=== PATIENT | male | born 1960 | race American Indian/Alaskan Native ===

== ENCOUNTER 2017-07-18 14:28 | Inpatient (IN) | payer MEDICAID, OTHER ==
[2017-07-18 15:34] LABS: BASO % 0.6 % (0.0-2.0); EOS # 0.1 K/uL (0.0-0.7); EOS % 1.9 % (0.0-4.0); HEMATOCRIT 33.9 % (35.0-51.0); LYMPH # 1.6 K/uL (1.0-4.3); LYMPH % 24.4 % (20.0-40.0); MEAN CELL VOLUME 91.3 fL (80.0-94.0); MEAN CORPUSCULAR HEMOGLOBIN 30.6 pg (27.0-31.0); MEAN CORPUSCULAR HGB CONC 33.5 g/dL (33.0-37.0); MEAN PLATELET VOLUME 8.7 fL (7.2-11.7); MONO # 0.5 K/uL (0.0-0.8); MONO % 7.2 % (0.0-10.0); RED CELL DISTRIBUTION WIDTH 13.4 % (11.5-14.5); WHITE BLOOD COUNT 6.6 K/uL (4.8-10.8)
[2017-07-18 15:42] LABS: INR 1.1
[2017-07-18 15:44] LABS: CHLORIDE 105 mmol/L (98-107); SODIUM 142 mmol/L (132-148)
[2017-07-18 15:45] LABS: POTASSIUM 4.1 mmol/L (3.6-5.2)
[2017-07-18 15:47] LABS: ALB/GLOB RATIO 1.2 (1.0-2.1); CARBON DIOXIDE 26 mmol/L (22-30); GFR AFRICAN-AMERICAN > 60; TOTAL PROTEIN 7.2 g/dL (6.3-8.3)
[2017-07-18 15:48] LABS: ALKALINE PHOSPHATASE 58 U/L (38-126); ALT/SGPT 29 U/L (21-72); AST/SGOT 26 U/L (17-59); BILIRUBIN,TOTAL 0.5 mg/dL (0.2-1.3); BLOOD UREA NITROGEN 12 mg/dL (9-20); CALCIUM 9.1 mg/dl (8.6-10.4); GLUCOSE,RANDOM 72 mg/dL (75-110)
[2017-07-18] MEDS ORDERED: Heparin25000 units/250ml 1/2NS 25,000 UNITS/250 ML BAG IV ONE (16:47)
--- NOTE | 2017-07-18 17:05 | C.PDOC ---
Time Seen by Provider: 07/18/17 14:48 Chief Complaint (Nursing): Lower Extremity Problem/Injury History Per: Patient Onset/Duration Of Symptoms: Days (about 1-2 weeks) Current Symptoms Are (Timing): Worse Severity: Moderate Associated Symptoms: Leg/Calf Pain (right), Ankle/Leg Swelling (right). denies : Chest Pain Reports Recently: Treated By A Physician Additional History Per: Prior Records Past Medical History Reviewed: Historical Data, Nursing Documentation, Vital Signs Vital Signs: Last Vital Signs Temp 98.4 F 07/18/17 16:26 Pulse 61 07/18/17 16:26 Resp 18 07/18/17 16:26 BP 153/84 H 07/18/17 16:26 Pulse Ox 96 07/18/17 16:26 - Medical History PMH: Deep Vein Thrombosis (many years ago), HTN, Hypercholesterolemia Family History: States: Unknown Family Hx - Social History Hx Alcohol Use: Yes Hx Substance Use: Yes - Immunization History Hx Tetanus Toxoid Vaccination: (unk) Hx Influenza Vaccination: No Hx Pneumococcal Vaccination: (unk) Review Of Systems Except As Marked, All Systems Reviewed And Found Negative. Constitutional: Negative for: Fever, Weakness Cardiovascular: Negative for: Chest Pain, Palpitations Respiratory: Negative for: Shortness of Breath Gastrointestinal: Negative for: Vomiting, Abdominal Pain Musculoskeletal: Positive for: Leg Pain (right). Negative for: Neck Pain, Back Pain Neurological: Negative for: Weakness, Numbness Physical Exam - Physical Exam Appears: Non-toxic, No Acute Distress Skin: Warm, Dry Head: Atraumatic, Normacephalic Eye(s): bilateral: Normal Inspection, PERRL, EOMI Neck: Normal ROM, Supple Cardiovascular: Rhythm Regular Respiratory: Normal Breath Sounds, No Accessory Muscle Use Gastrointestinal/Abdominal: Soft, No Tenderness Back: No CVA Tenderness Extremity: Normal ROM, Calf Tenderness (right), Capillary Refill (wnl), Swelling (RLE) Pulses: Right Dorsalis Pedis: Normal Neurological/Psych: Oriented x3, Normal Motor, Normal Sensation ED Course And Treatment - Laboratory Results Result Diagrams: 07/18/17 15:30 07/18/17 15:30 O2 Sat by Pulse Oximetry: 96 Pulse Ox Interpretation: Normal - CT Scan/US RLE Duplex Other Rad Studies (CT/US): Read By Radiologist, Radiology Report Reviewed CT/US Interpretation: Acute DVT in entire RLE. Progress - Interventions Interventions:: Observation - Medications Administered Intravenous: Other (Heparin) - Data Reviewed Data Reviewed: Lab, Diagnostic imaging, Old records - Continuity of Care Discussed patient case with:: Patient, ED Nurse, Covering for PMD - Patient Plan Patient Plan: Admission Disposition Discussed With : [place] Comment: He accepted pt on his service. Doctor Will See Patient In The: Hospital Counseled Patient/Family Regarding: Studies Performed, Diagnosis - Disposition Disposition: HOSPITALIZED Disposition Time: 17:05 Condition: GUARDED - Clinical Impression Clinical Impression: Acute deep vein thrombosis of right lower extremity
--- NOTE | 2017-07-18 17:54 | CP.PCM.HP ---
Past Patient History - Past Social History Smoking Status: Light Smoker < 10 Cigarettes Daily - CARDIAC Hx Hypercholesterolemia: Yes Hx Hypertension: Yes - PSYCHIATRIC Hx Substance Use: Yes - SURGICAL HISTORY Hx Surgeries: No - ANESTHESIA Hx Anesthesia: No Meds Allergies/Adverse Reactions: Allergies Allergy/AdvReac Type Severity Reaction Status Date / Time No Known Allergies Allergy Unverified 07/18/17 14:40 Results - Vital Signs Recent Vital Signs: Last Vital Signs Temp 98.4 F 07/18/17 16:26 Pulse 61 07/18/17 16:26 Resp 18 07/18/17 16:26 BP 153/84 H 07/18/17 16:26 Pulse Ox 96 07/18/17 17:09 - Labs Result Diagrams: 07/18/17 15:30 07/18/17 15:30 Labs: Laboratory Results - last 24 hr 07/18/17 07/18/17 07/18/17 15:30 15:30 15:30 WBC 6.6 RBC 3.71 L Hgb 11.3 L Hct 33.9 L MCV 91.3 MCH 30.6 MCHC 33.5 RDW 13.4 Plt Count 174 MPV 8.7 Neut % (Auto) 65.9 Lymph % (Auto) 24.4 [place] % (Auto) 7.2 Eos % (Auto) 1.9 Baso % (Auto) 0.6 Neut # 4.3 Lymph # 1.6 [place] # 0.5 Eos # 0.1 Baso # 0.0 PT 12.1 INR 1.1 APTT 29 Sodium 142 Potassium 4.1 Chloride 105 Carbon Dioxide 26 Anion Gap 15 BUN 12 Creatinine 0.8 Est GFR ( Amer) > 60 Est GFR (Non-Af Amer) > 60 Random Glucose 72 L Calcium 9.1 Total Bilirubin 0.5 AST 26 ALT 29 Alkaline Phosphatase 58 Total Protein 7.2 Albumin 3.9 Globulin 3.2 Albumin/Globulin Ratio 1.2
[2017-07-18] MEDS ORDERED: Pneumococcal 23-Valent Vaccine IM ONE (21:02)
[2017-07-19] MEDS ORDERED: Heparin25000 units/250ml 1/2NS 25,000 UNITS/250 ML BAG IV ONE ×3 (02:45→19:30)
[2017-07-19] MEDS: Methadone 40 mg Tab PO SCH (12:44)
--- NOTE | 2017-07-19 17:20 | CP.PCM.PN ---
Subjective - Date & Time of Evaluation Date of Evaluation: 07/19/17 Time of Evaluation: 17:20 Objective - Vital Signs/Intake and Output Vital Signs (last 24 hours): Temp Pulse Resp BP Pulse Ox 98.1 F 66 20 121/71 97 07/19/17 16:00 07/19/17 16:52 07/19/17 16:00 07/19/17 16:00 07/19/17 16:00 Intake and Output: 07/19/17 07/19/17 06:59 18:59 Intake Total 680 577.6 Output Total 1000 850 Balance -320 -272.4 - Medications Medications: Current Medications Amlodipine Besylate (Norvasc) 10 mg PO DAILY [facility] Last Admin: 07/19/17 09:38 Dose: 10 mg Heparin Sodium/Sodium Chloride (Heparin 67889 Units/250ml 1/2 Normal Saline) 25 ,000 units in 250 mls @ 9.743 mls/hr IV .Q24H ONE; 12 UNITS/KG/HR PRN Reason: Protocol Stop: 07/20/17 05:14 Last Admin: 07/19/17 04:55 Dose: 12 units/kg/hr, 9.743 mls/hr Methadone HCl (Methadone) 5 mg PO DAILY [facility] Last Admin: 07/19/17 12:44 Dose: 5 mg Methadone HCl (Methadose) 160 mg PO DAILY [facility] Last Admin: 07/19/17 12:44 Dose: 160 mg - Labs Labs: 07/18/17 15:30 07/18/17 15:30 PT 12.1 SECONDS (9.7-12.2) 07/18/17 15:30 INR 1.1 07/18/17 15:30 APTT 83 SECONDS (21-34) H D 07/19/17 10:59
--- NOTE | 2017-07-19 22:21 | CP.PCM.CON ---
History of Present Illness - History of Present Illness History of Present Illness: Patient seen and evaluated Admitted for right leg DVT Now on anticoagulation Chief Complaint (Nursing): Lower Extremity Problem/Injury History Per: Patient Onset/Duration Of Symptoms: Days (about 1-2 weeks) Current Symptoms Are (Timing): Worse Severity: Moderate Associated Symptoms: Leg/Calf Pain (right), Ankle/Leg Swelling (right). denies : Chest Pain Reports Recently: Treated By A Physician Additional History Per: Prior Records - Medical History PMH: Deep Vein Thrombosis (many years ago), HTN, Hypercholesterolemia Family History: States: Unknown Family Hx - Social History Hx Alcohol Use: Yes Hx Substance Use: Yes - Immunization History Hx Tetanus Toxoid Vaccination: (unk) Hx Influenza Vaccination: No Hx Pneumococcal Vaccination: (unk) Review Of Systems Except As Marked, All Systems Reviewed And Found Negative. Constitutional: Negative for: Fever, Weakness Cardiovascular: Negative for: Chest Pain, Palpitations Respiratory: Negative for: Shortness of Breath Gastrointestinal: Negative for: Vomiting, Abdominal Pain Musculoskeletal: Positive for: Leg Pain (right). Negative for: Neck Pain, Back Pain Neurological: Negative for: Weakness, Numbness Physical Exam - Physical Exam Appears: Non-toxic, No Acute Distress Skin: Warm, Dry Head: Atraumatic, Normacephalic Eye(s): bilateral: Normal Inspection, PERRL, EOMI Neck: Normal ROM, Supple Cardiovascular: Rhythm Regular Respiratory: Normal Breath Sounds, No Accessory Muscle Use Gastrointestinal/Abdominal: Soft, No Tenderness Back: No CVA Tenderness Extremity: Normal ROM, Calf Tenderness (right), Capillary Refill (wnl), Swelling (RLE) Pulses: Right Dorsalis Pedis: Normal Neurological/Psych: Oriented x3, Normal Motor, Normal Sensation Past Patient History - Past Medical History & Family History Past Medical History?: Yes - Past Social History Smoking Status: Light Smoker < 10 Cigarettes Daily - CARDIAC Hx Hypercholesterolemia: Yes Hx Hypertension: Yes - MUSCULOSKELETAL/RHEUMATOLOGICAL Hx Falls: No - PSYCHIATRIC Hx Substance Use: Yes - SURGICAL HISTORY Hx Surgeries: No - ANESTHESIA Hx Anesthesia: No Meds Allergies/Adverse Reactions: Allergies Allergy/AdvReac Type Severity Reaction Status Date / Time No Known Allergies Allergy Unverified 07/18/17 14:40 - Medications Medications: Current Medications Amlodipine Besylate (Norvasc) 10 mg PO DAILY [facility] Last Admin: 07/19/17 09:38 Dose: 10 mg Heparin Sodium/Sodium Chloride (Heparin 85652 Units/250ml 1/2 Normal Saline) 25 ,000 units in 250 mls @ 9.743 mls/hr IV .Q24H ONE; 12 UNITS/KG/HR PRN Reason: Protocol Stop: 07/20/17 19:29 Last Admin: 07/19/17 19:27 Dose: 12 units/kg/hr, 9.743 mls/hr Methadone HCl (Methadone) 5 mg PO DAILY [facility] Last Admin: 07/19/17 12:44 Dose: 5 mg Methadone HCl (Methadose) 160 mg PO DAILY [facility] Last Admin: 07/19/17 12:44 Dose: 160 mg Results - Vital Signs Recent Vital Signs: Last Vital Signs Temp 98.1 F 07/19/17 16:00 Pulse 66 07/19/17 16:52 Resp 20 07/19/17 16:00 BP 121/71 07/19/17 16:00 Pulse Ox 97 07/19/17 16:00 - Labs Result Diagrams: 07/21/17 08:01 07/21/17 08:01 Labs: Laboratory Results - last 24 hr 07/19/17 07/19/17 07/19/17 00:51 03:06 05:12 APTT 211 H* D 118 H* D 65 H D TSH 3rd Generation 07/19/17 07/19/17 07:08 10:59 APTT 83 H D TSH 3rd Generation 3.61 Assessment & Plan - Assessment and Plan (Free Text) Assessment: (1) Acute deep vein thrombosis of right lower extremity Assessment and Plan: Anticoagulation as per PMD and Hematology (2) Anemia Assessment and Plan: Mgt as per PMD (3) Coagulopathy Assessment and Plan: secondary to anticoagulation (3) RA Mass Assessment and Plan: Clot Vs. Endocarditis Vs. RA myxoma RADHA tomorrow
--- NOTE | 2017-07-20 07:09 | CARD ---
APPROVED REPORT EXAM: Two-dimensional and M-mode echocardiogram with Doppler and color Doppler. Other Information Quality : GoodRhythm : NSR INDICATION Dyspnea RISK FACTORS Hypertension Hyperlipidemia 2D DIMENSIONS IVSd1.2 (0.7-1.1cm)LVDd5.2 (3.9-5.9cm) PWd0.9 (0.7-1.1cm)LVDs3.0 (2.5-4.0cm) FS (%) 41.3 %LVEF (%)71.9 (>50%) M-Mode DIMENSIONS RVDd2.08 (2.1-3.2cm)Left Atrium (MM)3.32 (2.5-4.0cm) IVSd0.80 (0.7-1.1cm)Aortic Root3.55 (2.2-3.7cm) LVDd5.45 (4.0-5.6cm)Aortic Cusp Exc.2.23 (1.5-2.0cm) PWd0.87 (0.7-1.1cm)FS (%) 39 % LVDs3.33 (2.0-3.8cm)LVEF (%)69 (>50%) Mitral Valve MV E Fjcxpdxy80.3cm/sMV A Myibcszl55.5cm/sE/A ratio0.7 TDI E/Lateral E'0.0E/Medial E'0.0 Tricuspid Valve TR Peak Lbiojfls340nv/sTR Peak Gr.60cgSnEOUG90udGj LEFT VENTRICLE The left ventricle is normal size. There is normal left ventricular wall thickness. Left ventricle systolic function is normal. The Ejection Fraction is >70%. There is normal LV segmental wall motion. Tissue Doppler imaging reveals abnormal left ventricular diastolic dysfunction. RIGHT VENTRICLE The right ventricle is normal size. There is normal right ventricular wall thickness. The right ventricular systolic function is normal. ATRIA The left atrium size is normal. The right atrium size is normal. The interatrial septum is intact with no evidence for an atrial septal defect. AORTIC VALVE The aortic valve is normal in structure. No aortic regurgitation is present. There is no aortic valvular stenosis. MITRAL VALVE The mitral valve is normal in structure. A borderline mitral valve prolapse is present. There is no mitral valve stenosis. Mitral regurgitation is mild. TRICUSPID VALVE There is mild tricuspid regurgitation. Right ventricular systolic pressure is estimated at 40-50 mmHg. There is mild-moderate pulmonary hypertension. There is a mobile large mass on the tricuspid valve consistent of vegetation(cannot rule out myxoma). Please correlate clinically.Suggest RADHA. PULMONIC VALVE The pulmonic valve is not well visualized. There is mild pulmonic valvular regurgitation. GREAT VESSELS The aortic root is normal in size. PERICARDIAL EFFUSION There is no significant pericardial effusion. <Conclusion> Left ventricle systolic function is normal. The Ejection Fraction is >70%. Diastolic dysfunction. No aortic regurgitation is present. Mitral regurgitation is mild. There is mild tricuspid regurgitation. There is mild-moderate pulmonary hypertension. There is a mobile large mass on the tricuspid valve consistent of vegetation(cannot rule out myxoma). Please correlate clinically.Suggest RADHA. There is mild pulmonic valvular regurgitation.
[2017-07-20 07:20] LABS: HEMATOCRIT 35.4 % (35.0-51.0); MEAN CORPUSCULAR HEMOGLOBIN 31.5 pg (27.0-31.0); MEAN CORPUSCULAR HGB CONC 33.8 g/dL (33.0-37.0); MEAN PLATELET VOLUME 9.9 fL (7.2-11.7); RED CELL DISTRIBUTION WIDTH 13.4 % (11.5-14.5); WHITE BLOOD COUNT 6.1 K/uL (4.8-10.8)
[2017-07-20] MEDS: Methadone 40 mg Tab PO SCH (10:08)
--- NOTE | 2017-07-20 11:48 | CP.PCM.CON ---
History of Present Illness - History of Present Illness History of Present Illness: 57 year old male with a history of recurrent RLE DVT admitted with RLE swelling concerning for DVT. The patient went to his PMD for RLE swelling and pain. He reports this is similar to prior DVTs and had an US with his PMD which the pt reports showed a DVT. His DVT in the RLE was diagnosed in 2013 and treated with 6 months of coumadin, He had a 2nd recurrent DVT in 2014 and again received 6 months of coumadin. He does report have several family members with blood clots. He denies chest pain and shortness of breath. Past medical history: Recurrent DVT Past surgical history: None Family history: Several family members with blood clots Social history: Smokes 5-6 cigs daily, denies alcohol, and illicit drug use. Allergies: NKA Review of systems: All remaining review of systems including HEENT, cardiovascular, respiratory, gastrointestinal, genitourinary, musculoskeletal, dermatologic, neurologic, and psychiatric are negative unless mentioned in the HPI. Past Patient History - Past Medical History & Family History Past Medical History?: Yes - Past Social History Smoking Status: Light Smoker < 10 Cigarettes Daily - CARDIAC Hx Hypercholesterolemia: Yes Hx Hypertension: Yes - MUSCULOSKELETAL/RHEUMATOLOGICAL Hx Falls: No - PSYCHIATRIC Hx Substance Use: Yes - SURGICAL HISTORY Hx Surgeries: No - ANESTHESIA Hx Anesthesia: No Meds Allergies/Adverse Reactions: Allergies Allergy/AdvReac Type Severity Reaction Status Date / Time No Known Allergies Allergy Unverified 07/18/17 14:40 - Medications Medications: Current Medications Amlodipine Besylate (Norvasc) 10 mg PO DAILY [facility] Last Admin: 07/20/17 10:08 Dose: 10 mg Heparin Sodium/Sodium Chloride (Heparin 74146 Units/250ml 1/2 Normal Saline) 25 ,000 units in 250 mls @ 9.743 mls/hr IV .Q24H ONE; 12 UNITS/KG/HR PRN Reason: Protocol Stop: 07/20/17 19:29 Last Admin: 07/19/17 19:27 Dose: 12 units/kg/hr, 9.743 mls/hr Methadone HCl (Methadone) 5 mg PO DAILY [facility] Last Admin: 07/20/17 10:08 Dose: 5 mg Methadone HCl (Methadose) 160 mg PO DAILY [facility] Last Admin: 07/20/17 10:08 Dose: 160 mg Physical Exam - Head Exam Head Exam: ATRAUMATIC - Eye Exam Eye Exam: Normal appearance - ENT Exam ENT Exam: Mucous Membranes Dry - Respiratory Exam Respiratory Exam: NORMAL BREATHING PATTERN - Cardiovascular Exam Cardiovascular Exam: +S1, +S2 - GI/Abdominal Exam GI & Abdominal Exam: Normal Bowel Sounds - Extremities Exam Extremities exam: Positive for: normal inspection - Neurological Exam Neurological exam: Oriented x3 - Psychiatric Exam Psychiatric exam: Normal Affect, Normal Mood - Skin Skin Exam: Warm Results - Vital Signs Recent Vital Signs: Last Vital Signs Temp 97.8 F 07/20/17 08:18 Pulse 56 L 07/20/17 08:18 Resp 20 07/20/17 08:18 BP 135/84 07/20/17 08:18 Pulse Ox 95 07/20/17 08:18 - Labs Result Diagrams: 07/20/17 07:10 07/18/17 15:30 Labs: Laboratory Results - last 24 hr 07/20/17 07/20/17 07:10 07:10 WBC 6.1 RBC 3.81 L Hgb 12.0 Hct 35.4 MCV 93.0 MCH 31.5 H MCHC 33.8 RDW 13.4 Plt Count 182 MPV 9.9 APTT 73 H D Assessment & Plan (1) Acute deep vein thrombosis of right lower extremity Assessment and Plan: agree with heparin drip pt agreeable to outpatient Pradaxa 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 Status: Acute
--- NOTE | 2017-07-20 15:13 | CP.PCM.PN ---
Subjective - Date & Time of Evaluation Date of Evaluation: 07/20/17 Time of Evaluation: 13:00 - Subjective Subjective: Leg swelling improved Objective - Vital Signs/Intake and Output Vital Signs (last 24 hours): Temp Pulse Resp BP Pulse Ox 97.4 F L 61 20 131/81 96 07/20/17 15:09 07/20/17 15:09 07/20/17 15:09 07/20/17 15:09 07/20/17 15:09 - Medications Medications: Current Medications Amlodipine Besylate (Norvasc) 10 mg PO DAILY [facility] Last Admin: 07/20/17 10:08 Dose: 10 mg Heparin Sodium/Sodium Chloride (Heparin 97414 Units/250ml 1/2 Normal Saline) 25 ,000 units in 250 mls @ 9.743 mls/hr IV .Q24H ONE; 12 UNITS/KG/HR PRN Reason: Protocol Stop: 07/20/17 19:29 Last Admin: 07/19/17 19:27 Dose: 12 units/kg/hr, 9.743 mls/hr Methadone HCl (Methadone) 5 mg PO DAILY [facility] Last Admin: 07/20/17 10:08 Dose: 5 mg Methadone HCl (Methadose) 160 mg PO DAILY [facility] Last Admin: 07/20/17 10:08 Dose: 160 mg - Labs Labs: 07/20/17 07:10 07/18/17 15:30 PT 12.1 SECONDS (9.7-12.2) 07/18/17 15:30 INR 1.1 07/18/17 15:30 APTT 73 SECONDS (21-34) H D 07/20/17 07:10 - Head Exam Head Exam: ATRAUMATIC - Eye Exam Eye Exam: Normal appearance - ENT Exam ENT Exam: Mucous Membranes Dry - Respiratory Exam Respiratory Exam: NORMAL BREATHING PATTERN - Cardiovascular Exam Cardiovascular Exam: +S1, +S2 - GI/Abdominal Exam GI & Abdominal Exam: Normal Bowel Sounds - Extremities Exam Extremities Exam: Pedal Edema Assessment and Plan (1) Acute deep vein thrombosis of right lower extremity Assessment & Plan: on heparin drip pt agreeable to outpatient Pradaxa 150mg BID lifelong anticoagulation hypercoag w/u sent Status: Acute (2) Anemia Assessment & Plan: w/u sent Status: Acute (3) Coagulopathy Assessment & Plan: anticoagulation Status: Acute
[2017-07-20 15:23] LABS: FOLATE 16.5 ng/mL
--- NOTE | 2017-07-20 19:02 | CP.PCM.PN ---
Subjective - Date & Time of Evaluation Date of Evaluation: 07/20/17 Time of Evaluation: 19:01 Objective - Vital Signs/Intake and Output Vital Signs (last 24 hours): Temp Pulse Resp BP Pulse Ox 97.4 F L 61 20 131/81 96 07/20/17 15:07/20/17 15:07/20/17 15:07/20/17 15:07/20/17 15:09 - Medications Medications: Current Medications Amlodipine Besylate (Norvasc) 10 mg PO DAILY [facility] Last Admin: 07/20/17 10:08 Dose: 10 mg Heparin Sodium/Sodium Chloride (Heparin 05807 Units/250ml 1/2 Normal Saline) 25 ,000 units in 250 mls @ 9.743 mls/hr IV .Q24H ONE; 12 UNITS/KG/HR PRN Reason: Protocol Stop: 07/20/17 19:29 Last Admin: 07/19/17 19:27 Dose: 12 units/kg/hr, 9.743 mls/hr Methadone HCl (Methadone) 5 mg PO DAILY [facility] Last Admin: 07/20/17 10:08 Dose: 5 mg Methadone HCl (Methadose) 160 mg PO DAILY [facility] Last Admin: 07/20/17 10:08 Dose: 160 mg - Labs Labs: 07/20/17 07:10 07/18/17 15:30 PT 12.1 SECONDS (9.7-12.2) 07/18/17 15:30 INR 1.1 07/18/17 15:30 APTT 73 SECONDS (21-34) H D 07/20/17 07:10
[2017-07-20] MEDS ORDERED: Heparin25000 units/250ml 1/2NS 25,000 UNITS/250 ML BAG IV PRN (20:34)
[2017-07-21 08:13] LABS: INR 1.1
[2017-07-21 08:17] LABS: HEMATOCRIT 38.4 % (35.0-51.0); MEAN CELL VOLUME 91.1 fL (80.0-94.0); MEAN CORPUSCULAR HEMOGLOBIN 29.9 pg (27.0-31.0); MEAN CORPUSCULAR HGB CONC 32.8 g/dL (33.0-37.0); MEAN PLATELET VOLUME 9.5 fL (7.2-11.7); RED CELL DISTRIBUTION WIDTH 13.7 % (11.5-14.5); WHITE BLOOD COUNT 6.6 K/uL (4.8-10.8)
[2017-07-21] MEDS ORDERED: Lidocaine 4% (Laryng-O-Jet) Kit MM ONE ×2 (08:20→08:31)
[2017-07-21 08:26] LABS: CHLORIDE 104 mmol/L (98-107); POTASSIUM 4.8 mmol/L (3.6-5.2); SODIUM 140 mmol/L (132-148)
[2017-07-21 08:29] LABS: BLOOD UREA NITROGEN 16 mg/dL (9-20); CARBON DIOXIDE 27 mmol/L (22-30); GFR AFRICAN-AMERICAN > 60
[2017-07-21 08:30] LABS: CALCIUM 9.3 mg/dl (8.6-10.4); GLUCOSE,RANDOM 82 mg/dL (75-110)
[2017-07-21] MEDS ORDERED: Midazolam 2 MG/2 ML VIAL ONE ×2 (08:30→08:31)
[2017-07-21] MEDS ORDERED: Propofol 10 mg/ml Inj (20 ML) ONE ×2 (08:35)
[2017-07-21] MEDS ORDERED: Heparin25000 units/250ml 1/2NS 25,000 UNITS/250 ML BAG IV PRN ×2 (11:15→22:30)
[2017-07-21] MEDS ORDERED: SODIUM CHLORIDE 0.9% IV ONE (12:00)
[2017-07-21] MEDS ORDERED: HEPARIN IV ONE (12:00)
[2017-07-21] MEDS: Methadone 40 mg Tab PO SCH (12:05)
--- NOTE | 2017-07-21 15:50 | CP.PCM.PN ---
Subjective - Date & Time of Evaluation Date of Evaluation: 07/21/17 Time of Evaluation: 15:50 Objective - Vital Signs/Intake and Output Vital Signs (last 24 hours): Temp Pulse Resp BP Pulse Ox 97.3 F L 65 20 120/75 96 07/21/17 15:28 07/21/17 15:28 07/21/17 15:28 07/21/17 15:28 07/21/17 15:28 Intake and Output: 07/21/17 07/21/17 06:59 18:59 Intake Total 777.6 Output Total 450 Balance 327.6 - Medications Medications: Current Medications Amlodipine Besylate (Norvasc) 10 mg PO DAILY [facility] Last Admin: 07/21/17 12:05 Dose: 10 mg Heparin Sodium/Sodium Chloride (Heparin 14746 Units/250ml 1/2 Normal Saline) 25 ,000 units in 250 mls @ 12.991 mls/hr IV .[id number] PRN; Protocol; 16 UNITS/KG/HR PRN Reason: ADJUST RATE PER PROTOCOL Last Admin: 07/21/17 12:06 Dose: 16 units/kg/hr, 12.991 mls/hr Methadone HCl (Methadone) 5 mg PO DAILY [facility] Last Admin: 07/21/17 12:05 Dose: 5 mg Methadone HCl (Methadose) 160 mg PO DAILY [facility] Last Admin: 07/21/17 12:05 Dose: 160 mg - Labs Labs: 07/21/17 08:01 07/21/17 08:01 PT 12.5 SECONDS (9.7-12.2) H 07/21/17 08:01 INR 1.1 07/21/17 08:01 APTT 23 SECONDS (21-34) D 07/21/17 08:01
--- NOTE | 2017-07-21 22:46 | CARD ---
APPROVED REPORT EXAM: Transesophageal echocardiogram with color flow Doppler. INDICATION R/O ENDOCARDITIS Mitral Valve E/A ratio0.0 TDI E/Lateral E'0.0E/Medial E'0.0 Tricuspid Valve TR Peak [id number] Peak Gr.25mmHg LEFT VENTRICLE The left ventricle is normal size. There is normal left ventricular wall thickness. The left ventricular function is normal. The left ventricular ejection fraction is within the normal range. No regional wall motion abnormalities noted. The left ventricular diastolic function is normal. No left ventricle thrombus noted on this study. There is no ventricular septal defect visualized. There is no left ventricular aneurysm. There is no mass noted in the left ventricle. RIGHT VENTRICLE The right ventricle is normal size. There is normal right ventricular wall thickness. The right ventricular systolic function is normal. ATRIA The left atrium size is normal. The right atrium size is normal. The interatrial septum is intact with no evidence for an atrial septal defect. AORTIC VALVE The aortic valve is normal in structure and function. No aortic regurgitation is present. There is no aortic valvular stenosis. There is no aortic valvular vegetation. MITRAL VALVE The mitral valve is thickened bot opens normally. There is no evidence of mitral valve prolapse. There is no mitral valve stenosis. There is mild mitral valve regurgitation noted. TRICUSPID VALVE The tricuspid valve opens well, the anterior leaflet is thickened. There is mild tricuspid valve regurgitation noted. On the atrial surface of the tricuspid leaflet, a circular hyperechoic mass is noted, 1.0 by 1.0 cn, seemingly attached to mid portion of the leaflet by a small stalk. There is no tricuspid valve stenosis. PULMONIC VALVE The pulmonary valve is normal in structure and function. There is no pulmonic valvular regurgitation. There is no pulmonic valvular stenosis. GREAT VESSELS The aortic root is normal in size. The ascending aorta is normal in size. The pulmonary artery is normal. The IVC is normal in size and collapses >50% with inspiration. PERICARDIAL EFFUSION The pericardium appears normal. There is no pleural effusion. <Conclusion> Normal LV systolic function. Thickened mitral valve leaflets with normal opening. Thickened anterior leaflet of the tricuspid valve. On the atrial surface of the tricuspid leaflet, a circular hyperechoic mass is noted, 1.0 by 1.0 cn, seemingly attached to mid portion of the leaflet by a small stalk.
[2017-07-22] MEDS: Heparin25000 units/250ml 1/2NS 25,000 UNITS/250 ML BAG IV PRN (05:48)
[2017-07-22] MEDS: Methadone 40 mg Tab PO SCH (10:01)
--- NOTE | 2017-07-22 14:25 | CP.PCM.PN ---
Subjective - Date & Time of Evaluation Date of Evaluation: 07/22/17 Time of Evaluation: 14:24 - Subjective Subjective: Patient seen and examined No events overnight No growth in blood culture Objective - Vital Signs/Intake and Output Vital Signs (last 24 hours): Temp Pulse Resp BP Pulse Ox 97.3 F L 52 L 20 127/84 98 07/22/17 08:00 07/22/17 08:01 07/22/17 08:00 07/22/17 08:00 07/22/17 08:00 Intake and Output: 07/22/17 07/22/17 06:59 18:59 Intake Total 774 Balance 774 - Medications Medications: Current Medications Amlodipine Besylate (Norvasc) 10 mg PO DAILY [facility] Last Admin: 07/22/17 10:01 Dose: 10 mg Heparin Sodium/Sodium Chloride (Heparin 25114 Units/250ml 1/2 Normal Saline) 25 ,000 units in 250 mls @ 8.931 mls/hr IV .Q24H PRN; Protocol; 11 UNITS/KG/HR PRN Reason: ADJUST RATE PER PROTOCOL Last Admin: 07/22/17 05:48 Dose: 11 units/kg/hr, 8.931 mls/hr Methadone HCl (Methadone) 5 mg PO DAILY [facility] Last Admin: 07/22/17 10:01 Dose: 5 mg Methadone HCl (Methadose) 160 mg PO DAILY [facility] Last Admin: 07/22/17 10:01 Dose: 160 mg - Labs Labs: 07/21/17 08:01 07/21/17 08:01 PT 12.5 SECONDS (9.7-12.2) H 07/21/17 08:01 INR 1.1 07/21/17 08:01 APTT 69 SECONDS (21-34) H D 07/22/17 12:10 - Head Exam Head Exam: NORMAL INSPECTION - Eye Exam Eye Exam: Normal appearance - ENT Exam ENT Exam: Mucous Membranes Moist - Respiratory Exam Respiratory Exam: Clear to Ausculation Bilateral - GI/Abdominal Exam GI & Abdominal Exam: Soft, Normal Bowel Sounds - Extremities Exam Extremities Exam: Pedal Edema - Psychiatric Exam Psychiatric exam: Normal Affect, Normal Mood Assessment and Plan - Assessment and Plan (Free Text) Assessment: Bradycardia DVT Hypertension History of drug abuse ? Endocarditis No growth and blood cultures Continue IV heparin Switch to Pradaxa upon discharge Cardiology follow-up Supportive care DVT GI prophylaxis
[2017-07-23 00:46] LABS: INR 1.1
[2017-07-23 04:48] LABS: B2 GLYCOPROTEIN I AB(IGA) <9 SAU (<=20); B2 GLYCOPROTEIN I AB(IGG) <9 SGU (<=20); B2 GLYCOPROTEIN I AB(IGM) <9 SMU (<=20)
[2017-07-23 05:05] LABS: CARDIOLIPIN AB (IGA) <11 APL (<=11)
[2017-07-23 07:42] LABS: PHOSPHATIDYLSERINE AB IGA <20 U/mL (<20); PHOSPHATIDYLSERINE AB IGM <25 U/mL (<25)
[2017-07-23] MEDS: Heparin25000 units/250ml 1/2NS 25,000 UNITS/250 ML BAG IV PRN (07:55)
[2017-07-23] MEDS: Methadone 40 mg Tab PO SCH (09:36)
--- NOTE | 2017-07-23 10:57 | CP.PCM.PN ---
Subjective - Date & Time of Evaluation Date of Evaluation: 07/23/17 Time of Evaluation: 10:56 - Subjective Subjective: Pt seen and examined No events overnight Blood cultures show no growth Objective - Vital Signs/Intake and Output Vital Signs (last 24 hours): Temp Pulse Resp BP Pulse Ox 97.8 F 65 20 122/81 97 07/23/17 07:50 07/23/17 07:50 07/23/17 07:50 07/23/17 07:50 07/23/17 07:50 Intake and Output: 07/23/17 07/23/17 06:59 18:59 Intake Total 370 Balance 370 - Medications Medications: Current Medications Amlodipine Besylate (Norvasc) 10 mg PO DAILY [facility] Last Admin: 07/23/17 09:36 Dose: 10 mg Heparin Sodium/Sodium Chloride (Heparin 32985 Units/250ml 1/2 Normal Saline) 25 ,000 units in 250 mls @ 8.931 mls/hr IV .Q24H PRN; Protocol; 11 UNITS/KG/HR PRN Reason: ADJUST RATE PER PROTOCOL Last Admin: 07/23/17 07:55 Dose: 11 units/kg/hr, 8.931 mls/hr Methadone HCl (Methadone) 5 mg PO DAILY [facility] Last Admin: 07/23/17 09:36 Dose: 5 mg Methadone HCl (Methadose) 160 mg PO DAILY [facility] Last Admin: 07/23/17 09:36 Dose: 160 mg - Labs Labs: 07/21/17 08:01 07/21/17 08:01 PT 12.4 SECONDS (9.7-12.2) H 07/23/17 00:35 INR 1.1 07/23/17 00:35 APTT 66 SECONDS (21-34) H 07/23/17 08:08 - Head Exam Head Exam: NORMAL INSPECTION - Eye Exam Eye Exam: Normal appearance - ENT Exam ENT Exam: Mucous Membranes Moist - Respiratory Exam Respiratory Exam: Clear to Ausculation Bilateral - Cardiovascular Exam Cardiovascular Exam: REGULAR RHYTHM, +S1, +S2 - GI/Abdominal Exam GI & Abdominal Exam: Soft, Normal Bowel Sounds - Extremities Exam Extremities Exam: Normal Inspection Assessment and Plan - Assessment and Plan (Free Text) Assessment: Bradycardia DVT Hypertension History of drug abuse 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
--- NOTE | 2017-07-23 12:05 | CP.PCM.PN ---
Subjective - Date & Time of Evaluation Date of Evaluation: 07/22/17 Time of Evaluation: 19:30 - Subjective Subjective: Pt seen and examined Denies fever, chills, weight loss, dyspnea or chest pain Physical examination - Head Exam Head Exam: NORMAL INSPECTION - Eye Exam Eye Exam: Normal appearance - ENT Exam ENT Exam: Mucous Membranes Moist - Respiratory Exam Respiratory Exam: Clear to Ausculation Bilateral - Cardiovascular Exam Cardiovascular Exam: REGULAR RHYTHM, +S1, +S2 - GI/Abdominal Exam GI & Abdominal Exam: Soft, Normal Bowel Sounds - Extremities Exam Extremities Exam: Normal Inspection Objective - Vital Signs/Intake and Output Vital Signs (last 24 hours): Temp Pulse Resp BP Pulse Ox 97.8 F 65 20 122/81 97 07/23/17 07:50 07/23/17 07:50 07/23/17 07:50 07/23/17 07:50 07/23/17 07:50 Intake and Output: 07/23/17 07/23/17 06:59 18:59 Intake Total 370 Balance 370 - Medications Medications: Current Medications Amlodipine Besylate (Norvasc) 10 mg PO DAILY [facility] Last Admin: 07/23/17 09:36 Dose: 10 mg Heparin Sodium/Sodium Chloride (Heparin 94562 Units/250ml 1/2 Normal Saline) 25 ,000 units in 250 mls @ 8.931 mls/hr IV .Q24H PRN; Protocol; 11 UNITS/KG/HR PRN Reason: ADJUST RATE PER PROTOCOL Last Admin: 07/23/17 07:55 Dose: 11 units/kg/hr, 8.931 mls/hr Methadone HCl (Methadose) 160 mg PO DAILY [facility] Last Admin: 07/23/17 09:36 Dose: 160 mg - Labs Labs: 07/21/17 08:01 07/21/17 08:01 PT 12.4 SECONDS (9.7-12.2) H 07/23/17 00:35 INR 1.1 07/23/17 00:35 APTT 66 SECONDS (21-34) H 07/23/17 08:08 Assessment and Plan - Assessment and Plan (Free Text) Assessment: (1) Acute deep vein thrombosis of right lower extremity Assessment and Plan: Anticoagulation as per PMD and Hematology (2) Anemia Assessment and Plan: Mgt as per PMD (3) Coagulopathy Assessment and Plan: secondary to anticoagulation (3) RA Mass Assessment and Plan: Please see the [facility] report Does not fullfill the Criteria for Endocarditis hence unlikely Endocarditis Clot Vs. Myxome Recommend f/u with Dr. Coronado for f/u ECHO in 3 months
--- NOTE | 2017-07-24 00:37 | CP.PCM.PN ---
Subjective - Date & Time of Evaluation Date of Evaluation: 07/21/17 Time of Evaluation: 11:10 - Subjective Subjective: Feeling better Objective - Vital Signs/Intake and Output Vital Signs (last 24 hours): Temp Pulse Resp BP Pulse Ox 97.9 F 58 L 20 130/70 96 07/23/17 16:08 07/23/17 23:58 07/23/17 16:08 07/23/17 22:00 07/23/17 16:08 Intake and Output: 07/23/17 07/24/17 18:59 06:59 Intake Total 551.2 469 Balance 551.2 469 - Medications Medications: Current Medications Amlodipine Besylate (Norvasc) 10 mg PO DAILY [facility] Last Admin: 07/23/17 09:36 Dose: 10 mg Heparin Sodium/Sodium Chloride (Heparin 64943 Units/250ml 1/2 Normal Saline) 25 ,000 units in 250 mls @ 8.931 mls/hr IV .Q24H PRN; Protocol; 11 UNITS/KG/HR PRN Reason: ADJUST RATE PER PROTOCOL Last Admin: 07/23/17 07:55 Dose: 11 units/kg/hr, 8.931 mls/hr Methadone HCl (Methadose) 160 mg PO DAILY [facility] Last Admin: 07/23/17 09:36 Dose: 160 mg - Labs Labs: 07/21/17 08:01 07/21/17 08:01 PT 12.4 SECONDS (9.7-12.2) H 07/23/17 00:35 INR 1.1 07/23/17 00:35 APTT 66 SECONDS (21-34) H 07/23/17 08:08 - Head Exam Head Exam: ATRAUMATIC - Eye Exam Eye Exam: Normal appearance - ENT Exam ENT Exam: Mucous Membranes Dry - Respiratory Exam Respiratory Exam: NORMAL BREATHING PATTERN - Cardiovascular Exam Cardiovascular Exam: +S1, +S2 - GI/Abdominal Exam GI & Abdominal Exam: Normal Bowel Sounds - Extremities Exam Extremities Exam: Pedal Edema Assessment and Plan (1) Acute deep vein thrombosis of right lower extremity Assessment & Plan: on heparin drip pt agreeable to outpatient Pradaxa 150mg BID lifelong anticoagulation hypercoag w/u sent Status: Acute (2) Anemia Assessment & Plan: chronic disease Status: Chronic (3) Coagulopathy Assessment & Plan: anticoagulation Status: Acute
--- NOTE | 2017-07-24 00:38 | CP.PCM.PN ---
Subjective - Date & Time of Evaluation Date of Evaluation: 07/22/17 Time of Evaluation: 17:00 - Subjective Subjective: Leg swelling improved Objective - Vital Signs/Intake and Output Vital Signs (last 24 hours): Temp Pulse Resp BP Pulse Ox 97.9 F 58 L 20 130/70 96 07/23/17 16:08 07/23/17 23:58 07/23/17 16:08 07/23/17 22:00 07/23/17 16:08 Intake and Output: 07/23/17 07/24/17 18:59 06:59 Intake Total 551.2 469 Balance 551.2 469 - Medications Medications: Current Medications Amlodipine Besylate (Norvasc) 10 mg PO DAILY [facility] Last Admin: 07/23/17 09:36 Dose: 10 mg Heparin Sodium/Sodium Chloride (Heparin 36121 Units/250ml 1/2 Normal Saline) 25 ,000 units in 250 mls @ 8.931 mls/hr IV .Q24H PRN; Protocol; 11 UNITS/KG/HR PRN Reason: ADJUST RATE PER PROTOCOL Last Admin: 07/23/17 07:55 Dose: 11 units/kg/hr, 8.931 mls/hr Methadone HCl (Methadose) 160 mg PO DAILY [facility] Last Admin: 07/23/17 09:36 Dose: 160 mg - Labs Labs: 07/21/17 08:01 07/21/17 08:01 PT 12.4 SECONDS (9.7-12.2) H 07/23/17 00:35 INR 1.1 07/23/17 00:35 APTT 66 SECONDS (21-34) H 07/23/17 08:08 - Head Exam Head Exam: ATRAUMATIC - Eye Exam Eye Exam: Normal appearance - ENT Exam ENT Exam: Mucous Membranes Dry - Respiratory Exam Respiratory Exam: NORMAL BREATHING PATTERN - Cardiovascular Exam Cardiovascular Exam: +S1, +S2 - GI/Abdominal Exam GI & Abdominal Exam: Normal Bowel Sounds - Extremities Exam Extremities Exam: Pedal Edema Assessment and Plan (1) Acute deep vein thrombosis of right lower extremity Assessment & Plan: on heparin drip pt agreeable to outpatient Pradaxa 150mg BID lifelong anticoagulation hypercoag w/u sent Status: Acute (2) Anemia Assessment & Plan: chronic disease Status: Chronic (3) Coagulopathy Assessment & Plan: anticoagulation Status: Acute
[2017-07-24 07:18] LABS: BASO # 0.1 K/uL (0.0-0.2); BASO % 1.3 % (0.0-2.0); EOS # 0.2 K/uL (0.0-0.7); EOS % 3.4 % (0.0-4.0); HEMATOCRIT 37.4 % (35.0-51.0); LYMPH # 2.3 K/uL (1.0-4.3); LYMPH % 36.5 % (20.0-40.0); MEAN CELL VOLUME 91.7 fL (80.0-94.0); MEAN CORPUSCULAR HGB CONC 33.8 g/dL (33.0-37.0); MEAN PLATELET VOLUME 9.5 fL (7.2-11.7); MONO # 0.5 K/uL (0.0-0.8); MONO % 8.5 % (0.0-10.0); NRBC % 0.1 % (0.0-2.0); RED CELL DISTRIBUTION WIDTH 13.7 % (11.5-14.5); WHITE BLOOD COUNT 6.4 K/uL (4.8-10.8)
[2017-07-24] MEDS: Methadone 40 mg Tab PO SCH (10:11)
--- NOTE | 2017-07-24 11:32 | VASCLAB ---
PROCEDURE: Lower Extremity Venous Duplex Exam. HISTORY: Pain/swelling, r/o DVT PRIORS: None. TECHNIQUE: Bilateral common femoral, femoral, popliteal and posterior tibial, peroneal and great saphenous veins were evaluated. Flow was assessed with color Doppler, compressibility, assessment of phasic flow and augmentation response. Report prepared by BEREKET Alicia, RVT FINDINGS: RIGHT: 1. Common Femoral Vein: 1.1. Compressibility - Partial: Thrombus - Acute : Flow - Reduced : Augmentation -Reduced: Reflux - None. 2. Femoral Vein: 2.1. Compressibility - Partial: Thrombus - Acute : Flow - Reduced : Augmentation -Reduced: Reflux - None. 3. Popliteal Vein: 3.1. Compressibility - Partial: Thrombus - Acute : Flow - Reduced : Augmentation -Reduced: Reflux - None. 4. Posterior Tibial Vein: 4.1. Compressibility - Partial: Thrombus - Acute: Flow - Reduced : Augmentation -None: Reflux - None. 5. Peroneal Vein: 5.1. Compressibility - Partial: Thrombus - Acute: Flow - Reduced : Augmentation -None: Reflux - None. 6. Great Saphenous Vein: 6.1. Compressibility - Fully compressible: Thrombus - None: Flow - Phasic: Augmentation - Normal: Reflux - None. LEFT: 1. Common Femoral Vein: 1.1. Compressibility - Fully compressible: Thrombus - None: Flow - Phasic: Augmentation -Normal: Reflux - None. 2. Femoral Vein: 2.1. Compressibility - Fully compressible: Thrombus - None: Flow - Phasic: Augmentation -Normal: Reflux - None. 3. Popliteal Vein: 3.1. Compressibility - Fully compressible: Thrombus - None : Flow - Phasic: Augmentation -Normal: Reflux - Severe. 4. Posterior Tibial Vein: 4.1. Compressibility - Fully compressible: Thrombus - None: Flow - Phasic: Augmentation -Normal: Reflux - None. 5. Peroneal Vein: 5.1. Compressibility - Fully compressible: Thrombus - None: Flow - Phasic: Augmentation -Normal: Reflux - None. 6. Great Saphenous Vein: 6.1. Compressibility - Fully compressible: Thrombus - None: Flow - Phasic: Augmentation - Normal: Reflux - None. OTHER FINDINGS: Left: Intima wall thickening noted within the left popliteal vein. Severe valvular incompetence of the left popliteal vein. Dr. Harrell notified about the findings. IMPRESSION: Right: Acute thrombosis of the right common femoral, femoral, popliteal, posterior tibial and peroneal veins with severe reduction of the venous return. Left: No evidence of deep or superficial vein thrombosis of the left lower extremity.
--- NOTE | 2017-07-24 18:14 | CP.PCM.PN ---
Subjective - Date & Time of Evaluation Date of Evaluation: 07/24/17 Time of Evaluation: 18:12 - Subjective Subjective: Patient seen and examined No events overnight No growth after 3 days on blood cultures Objective - Vital Signs/Intake and Output Vital Signs (last 24 hours): Temp Pulse Resp BP Pulse Ox 97.8 F 72 18 115/85 97 07/24/17 16:31 07/24/17 16:31 07/24/17 16:31 07/24/17 16:31 07/24/17 16:31 Intake and Output: 07/24/17 07/24/17 06:59 18:59 Intake Total 469 426.7 Balance 469 426.7 - Medications Medications: Current Medications Amlodipine Besylate (Norvasc) 10 mg PO DAILY [facility] Last Admin: 07/24/17 10:11 Dose: 10 mg Heparin Sodium/Sodium Chloride (Heparin 03674 Units/250ml 1/2 Normal Saline) 25 ,000 units in 250 mls @ 8.931 mls/hr IV .Q24H PRN; Protocol; 11 UNITS/KG/HR PRN Reason: ADJUST RATE PER PROTOCOL Last Admin: 07/23/17 07:55 Dose: 11 units/kg/hr, 8.931 mls/hr Methadone HCl (Methadose) 160 mg PO DAILY [facility] Last Admin: 07/24/17 10:11 Dose: 160 mg Methadone HCl (Methadone) 5 mg PO DAILY [facility] Last Admin: 07/24/17 10:11 Dose: 5 mg - Labs Labs: 07/24/17 06:56 07/21/17 08:01 PT 12.4 SECONDS (9.7-12.2) H 07/23/17 00:35 INR 1.1 07/23/17 00:35 APTT 65 SECONDS (21-34) H 07/24/17 06:56 - Head Exam Head Exam: NORMAL INSPECTION - Eye Exam Eye Exam: Normal appearance - ENT Exam ENT Exam: Mucous Membranes Moist - Respiratory Exam Respiratory Exam: Clear to Ausculation Bilateral, NORMAL BREATHING PATTERN - GI/Abdominal Exam GI & Abdominal Exam: Soft, Normal Bowel Sounds - Extremities Exam Extremities Exam: Normal Inspection - Neurological Exam Neurological Exam: Alert, Oriented x3 Assessment and Plan - Assessment and Plan (Free Text) Assessment: Bradycardia DVT Hypertension History of drug abuse 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 Supportive care DVT GI prophylaxis
[2017-07-25 00:58] VITALS: RESP 20
[2017-07-25 06:51] LABS: MEAN CELL VOLUME 92.5 fL (80.0-94.0); MEAN CORPUSCULAR HEMOGLOBIN 31.3 pg (27.0-31.0); MEAN CORPUSCULAR HGB CONC 33.8 g/dL (33.0-37.0); MEAN PLATELET VOLUME 9.9 fL (7.2-11.7); RED CELL DISTRIBUTION WIDTH 13.6 % (11.5-14.5); WHITE BLOOD COUNT 6.5 K/uL (4.8-10.8)
[2017-07-25] MEDS: Methadone 40 mg Tab PO SCH (10:02)
[2017-07-25 15:56] VITALS: BP 117/75; TEMP 98.4; O2SAT 96
--- NOTE | 2017-07-25 16:14 | CP.PCM.DIS ---
Provider - Provider Date of Admission: 07/18/17 17:09 Attending physician: Noe Grove MD Time Spent in preparation of Discharge (in minutes): 25 Diagnosis - Discharge Diagnosis (1) Myxoma Status: Acute Hospital Course - Lab Results Lab Results: Micro Results 07/20/17 Unknown Blood Blood Culture - Preliminary NO GROWTH AFTER 4 DAYS 07/20/17 Unknown Blood Blood Culture - Preliminary NO GROWTH AFTER 4 DAYS Most Recent Lab Values WBC 6.5 K/uL (4.8-10.8) 07/25/17 06:33 RBC 4.00 Mil/uL (4.40-5.90) L 07/25/17 06:33 Hgb 12.5 g/dL (12.0-18.0) 07/25/17 06:33 Hct 37.0 % (35.0-51.0) 07/25/17 06:33 MCV 92.5 fL (80.0-94.0) 07/25/17 06:33 MCH 31.3 pg (27.0-31.0) H 07/25/17 06:33 MCHC 33.8 g/dL (33.0-37.0) 07/25/17 06:33 RDW 13.6 % (11.5-14.5) 07/25/17 06:33 Plt Count 206 K/uL (130-400) 07/25/17 06:33 MPV 9.9 fL (7.2-11.7) 07/25/17 06:33 Neut % (Auto) 50.3 % (50.0-75.0) 07/24/17 06:56 Lymph % (Auto) 36.5 % (20.0-40.0) 07/24/17 06:56 Faulkner % (Auto) 8.5 % (0.0-10.0) 07/24/17 06:56 Eos % (Auto) 3.4 % (0.0-4.0) 07/24/17 06:56 Baso % (Auto) 1.3 % (0.0-2.0) 07/24/17 06:56 Neut # 3.2 K/uL (1.8-7.0) 07/24/17 06:56 Lymph # 2.3 K/uL (1.0-4.3) 07/24/17 06:56 Faulkner # 0.5 K/uL (0.0-0.8) 07/24/17 06:56 Eos # 0.2 K/uL (0.0-0.7) 07/24/17 06:56 Baso # 0.1 K/uL (0.0-0.2) 07/24/17 06:56 Retic Count 2.2 % (0.5-1.5) H 07/20/17 13:58 PT 12.4 SECONDS (9.7-12.2) H 07/23/17 00:35 INR 1.1 07/23/17 00:35 APTT 70 SECONDS (21-34) H D 07/25/17 06:33 Factor V see note 07/20/17 13:58 Sodium 140 mmol/L (132-148) 07/21/17 08:01 Potassium 4.8 mmol/L (3.6-5.2) 07/21/17 08:01 Chloride 104 mmol/L (98-107) 07/21/17 08:01 Carbon Dioxide 27 mmol/L (22-30) 07/21/17 08:01 Anion Gap 14 (10-20) 07/21/17 08:01 BUN 16 mg/dL (9-20) 07/21/17 08:01 Creatinine 1.0 MG/DL (0.8-1.5) 07/21/17 08:01 Est GFR ( Amer) > 60 07/21/17 08:01 Est GFR (Non-Af Amer) > 60 07/21/17 08:01 Random Glucose 82 mg/dL (75-110) 07/21/17 08:01 Calcium 9.3 mg/dl (8.6-10.4) 07/21/17 08:01 Ferritin 192.0 ng/mL 07/20/17 13:58 Total Bilirubin 0.5 mg/dL (0.2-1.3) 07/18/17 15:30 AST 26 U/L (17-59) 07/18/17 15:30 ALT 29 U/L (21-72) 07/18/17 15:30 Alkaline Phosphatase 58 U/L (38-126) 07/18/17 15:30 Total Protein 7.2 g/dL (6.3-8.3) 07/18/17 15:30 Albumin 3.9 g/dL (3.5-5.0) 07/18/17 15:30 Globulin 3.2 gm/dL (2.2-3.9) 07/18/17 15:30 Albumin/Globulin Ratio 1.2 (1.0-2.1) 07/18/17 15:30 Vitamin B12 886 pg/mL (239-931) 07/20/17 13:58 Folate 16.5 ng/mL 07/20/17 13:58 TSH 3rd Generation 3.61 mIU/L (0.46-4.68) 07/19/17 07:08 Stool Occult Blood Negative (NEGATIVE) 07/23/17 22:03 [id number] Ab <9 GABBIE (<=20) 07/20/17 13:58 Beta-2 GPI IgG Ab <9 SGU (<=20) 07/20/17 13:58 Beta-2 GPI IgM Ab <9 SMU (<=20) 07/20/17 13:58 Phosphatidylserine IgG <10 U/mL (<10) 07/20/17 13:58 Phosphatidylserine IgA <20 U/mL (<20) 07/20/17 13:58 Phosphatidylserine IgM <25 U/mL (<25) 07/20/17 13:58 Anti-Phospholipid Intrp see note 07/20/17 13:58 Anti-Cardiolipin IgG Ab <14 GPL (<=14) 07/20/17 13:58 Anti-Cardiolipin IgA Ab <11 APL (<=11) 07/20/17 13:58 Anti-Cardiolipin IgM Ab 13 MPL (<=12) H 07/20/17 13:58 Prothrombin Mut Interp see note 07/20/17 13:58 Prothrombin Gene Mutate see note 07/20/17 13:58 Prothromb Gene Review see note 07/20/17 13:58 - Hospital Course Hospital Course: Pt was suspected to have endocarditis but blood cultures remained negative. Pt was treated with IV heparin. Will need oral anticoagulants for rest of his life. 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 and the pt will follow up with his director multimedia as out pt Discharge Exam - Head Exam Head Exam: NORMAL INSPECTION - Eye Exam Eye Exam: Normal appearance - Respiratory Exam Respiratory Exam: NORMAL BREATHING PATTERN - Cardiovascular Exam Cardiovascular Exam: REGULAR RHYTHM - GI/Abdominal Exam GI & Abdominal Exam: Normal Bowel Sounds - Extremities Exam Extremities exam: normal inspection - Neurological Exam Neurological exam: Alert, Oriented x3 Discharge Plan - Follow Up Plan Condition: GUARDED Disposition: HOME/ ROUTINE Instructions: Pulmonary Embolism (DC), Pulmonary Embolism (GEN), Deep Venous Thrombosis (DC), Deep Venous Thrombosis (GEN)
[2017-07-25 16:41] VITALS: PULSE 20
== END 2017-07-25 17:30 | disposition home or self-care (01) | DRG 131 ==
LOC: C.ER 14:28 → C.9E 17:09 → C.3T 18:09 → C.5S 21:30
PROVIDERS: ADMIT Internal Medicine Critical Care Medicine; ATTEND Internal Medicine Critical Care Medicine
DX: I82.441 Acute embolism and thrombosis of right tibial vein (principal); D68.9 Coagulation defect, unspecified; I82.431 Acute embolism and thrombosis of right popliteal vein; T45.525A Adverse effect of antithrombotic drugs, initial encounter; I82.411 Acute embolism and thrombosis of right femoral vein; D15.1 Benign neoplasm of heart; F17.210 Nicotine dependence, cigarettes, uncomplicated; E78.00 Pure hypercholesterolemia, unspecified; I10 Essential (primary) hypertension; D63.8 Anemia in other chronic diseases classified elsewhere